=== PATIENT | female | born 2000 | race Caucasian/White ===

== ENCOUNTER 2022-07-12 14:37 | Emergency (ER) | payer OTHER ==
[~2022-07-12] VITALS: Ht 160 cm; Wt 52.7 kg
[2022-07-12] MEDS ORDERED: IBUPROFEN 400 MG TAB PO ONE (16:45)
[2022-07-12] MEDS ORDERED: IBUPROFEN 400 MG TAB ONE (17:05)
== END 2022-07-12 17:30 | disposition home or self-care (01) ==
LOC: FSED 14:52
DX: M54.50 Low back pain, unspecified (principal)
CPT/HCPCS: 80048; 81003; 81025; 99282